=== PATIENT | male | born 1970 | race Caucasian/White ===

== ENCOUNTER 2024-01-26 18:28 | Inpatient (IN) | payer OTHER ==
[~2024-01-26] VITALS: Ht 193 cm; Wt 104.3 kg
[2024-01-26] MEDS ORDERED: NORCO (19:04)
[2024-01-26 20:39] LABS: BASOPHILS % 0.2 % (0.0-2.0); EOSINOPHILS % 2.5 % (0.0-5.0); HEMATOCRIT. 33.8 % (42.0-52.0); HEMOGLOBIN. 11.6 g/dL (14.0-18.0); LYMPHOCYTES % 9.3 % (20.0-50.0); MEAN CORPUSCULAR HEMOGLOBIN 32.7 pg (28.0-32.0); MEAN CORPUSCULAR HGB CONC 34.3 g/dL (31.0-37.0); MEAN CORPUSCULAR VOLUME 95.4 fL (80.0-94.0); MEAN PLATELET VOLUME 11.9 fl (7.4-10.4); MONOCYTES % 5.7 % (2.0-8.0); NEUTROPHILS % 82.3 % (40.0-76.0); PLATELET 158 x1000/uL (130-400); RED BLOOD CELL COUNT 3.54 mill/uL (4.7-6.1); RED CELL DISTRIBUTION WIDTH 14.1 % (11.6-14.6); WHITE BLOOD COUNT 8.1 x1000/uL (4.5-11.0)
[2024-01-26] MEDS: PIPERACILLIN/TAZO 3.375G/50ML 50 ML IV STA (20:41)
[2024-01-26] MEDS: FENTANYL CITRATE/PF 50MCG/ML 2ML VIAL IV ONE (20:41)
[2024-01-26] MEDS: SODIUM CHLORIDE 0.9% 1000ML BAG (SEPSIS BOLUS) IV ONE (20:42)
[2024-01-26 20:45] LABS: CHLORIDE 108 mEq/L (98-107); POTASSIUM 4.7 mEq/L (3.5-5.1); SODIUM 140 mEq/L (136-145)
[2024-01-26 20:46] LABS: CALCIUM 9.4 mg/dL (8.7-10.4); CARBON DIOXIDE 25 mEq/L (21-32)
[2024-01-26 20:51] LABS: CREATININE 1.1 mg/dL (0.6-1.3); GLUCOSE 116 mg/dL (70-105); UREA NITROGEN BLOOD 19 mg/dL (9-23)
[2024-01-26 20:53] LABS: TROPONIN I HIGH SENSITIVITY < 4 ng/L (3.0-53)
[2024-01-26 20:59] LABS: D-DIMER 7.92 mg/L FEU (<0.50); PARTIAL THROMBOPLASTIN TIME 29.7 sec (23.4-31.0)
[2024-01-26] MEDS: MORPHINE SULFATE 4 MG/ML INJ (FOR IV/IM USE) IV ONE (21:49)
[2024-01-26] MEDS ORDERED: ZOLPIDEM TARTRATE 5MG TABLET PO PRN (22:00)
[2024-01-26] MEDS ORDERED: LEVOFLOXACIN 500MG PREMIX 100 ML IV SCH (22:00)
[2024-01-26] MEDS ORDERED: ONDANSETRON HCL 4MG/2ML INJ IV PRN (22:00)
[2024-01-26] MEDS: ENOXAPARIN 40MG/0.4ML SYR SUBCUT SCH (22:30)
[2024-01-26] MEDS ORDERED: IOHEXOL-350 100 ML BOTTLE ONE ×2 (23:28)
[2024-01-27] MEDS: LEVOFLOXACIN 750MG PREMIX 150ML IV SCH (00:45)
[2024-01-27] MEDS: VANCOMYCIN 1,750 MG in DEXT 5% WATER 500 ML IV NR (03:30)
[2024-01-27 03:39] LABS: BASOPHILS % 0.3 % (0.0-2.0); EOSINOPHILS % 7.9 % (0.0-5.0); HEMATOCRIT. 29.6 % (42.0-52.0); LYMPHOCYTES % 18.5 % (20.0-50.0); MEAN CORPUSCULAR HEMOGLOBIN 32.7 pg (28.0-32.0); MEAN CORPUSCULAR HGB CONC 33.7 g/dL (31.0-37.0); MEAN CORPUSCULAR VOLUME 97.1 fL (80.0-94.0); MEAN PLATELET VOLUME 12.1 fl (7.4-10.4); MONOCYTES % 10.9 % (2.0-8.0); NEUTROPHILS % 62.4 % (40.0-76.0); PLATELET 105 x1000/uL (130-400); RED BLOOD CELL COUNT 3.05 mill/uL (4.7-6.1); RED CELL DISTRIBUTION WIDTH 14.6 % (11.6-14.6); WHITE BLOOD COUNT 5.3 x1000/uL (4.5-11.0)
[2024-01-27 03:43] LABS: CARBON DIOXIDE 24 mEq/L (21-32); CHLORIDE 108 mEq/L (98-107); POTASSIUM 4.2 mEq/L (3.5-5.1); SODIUM 139 mEq/L (136-145)
[2024-01-27 03:44] LABS: CALCIUM 8.8 mg/dL (8.7-10.4)
[2024-01-27 03:49] LABS: CREATINE KINASE MB FRACTION < 0.5 ng/mL (0.5-3.6); CREATININE 0.9 mg/dL (0.6-1.3)
[2024-01-27 03:50] LABS: GLUCOSE 99 mg/dL (70-105); UREA NITROGEN BLOOD 17 mg/dL (9-23)
[2024-01-27 03:51] LABS: CREATINE KINASE 52 IU/L (46-171)
[2024-01-27 03:58] LABS: TROPONIN I HIGH SENSITIVITY < 4 ng/L (3.0-53)
[2024-01-27] MEDS ORDERED: NALOXONE HCL 0.4MG/ML VIAL IV PRN (11:15)
[2024-01-27] MEDS ORDERED: OMEP20CA14 PO (11:41)
[2024-01-27] MEDS ORDERED: ALLO100T MT (11:41)
[2024-01-27] MEDS ORDERED: AMLO-498 MT (11:41)
[2024-01-27 12:00] VITALS: BP 176/89; PULSE 84; RESP 18; TEMP 36.33624; TEMP 36.3624; O2SAT 100
[2024-01-27 12:21] LABS: CREATINE KINASE MB FRACTION < 0.5 ng/mL (0.5-3.6)
[2024-01-27 12:23] LABS: CREATINE KINASE 45 IU/L (46-171)
[2024-01-27 12:34] LABS: TROPONIN I HIGH SENSITIVITY < 4 ng/L (3.0-53)
[2024-01-27] MEDS: CLONIDINE 0.1MG TABLET PO PRN (12:37)
[2024-01-27] MEDS: PANTOPRAZOLE SODIUM 40 MG/VIAL IV SCH (12:37)
[2024-01-27] MEDS: ACETAMINOPHEN 325MG TABLET PO PRN (12:43)
[2024-01-27] MEDS ORDERED: IBUP-2029 MT (12:54)
[2024-01-27] MEDS ORDERED: HYDR-4001 MT (12:54)
[2024-01-27 15:21] LABS: *AMPHETAMINES SCREEN URINE NEGATIVE (NEGATIVE); *BARBITURATES SCREEN URINE NEGATIVE (NEGATIVE); *BENZODIAZEPINES SCREEN URINE NEGATIVE (NEGATIVE); *COCAINE SCREEN URINE NEGATIVE (NEGATIVE); CANNABINOID URINE SCREEN PRESUMPTIVE POSITIVE (NEGATIVE); METHADONE URINE SCREEN NEGATIVE (NEGATIVE); OPIATES URINE SCREEN PRESUMPTIVE POSITIVE (NEGATIVE); PHENCYCLIDINE URINE SCREEN NEGATIVE (NEGATIVE)
[2024-01-27 15:22] LABS: ECSTASY MDMA SCREEN URINE NEGATIVE (NEGATIVE)
[2024-01-27 16:00] VITALS: BP 150/78; PULSE 82; RESP 18; TEMP 36.33624; O2SAT 98
[2024-01-27] MEDS: PIPERACILLIN/TAZO 3.375G/50ML 50 ML IV SCH (16:23)
[2024-01-27] MEDS ORDERED: AZITHROMYCIN 500MG/250ML IV SCH (17:00)
[2024-01-27] MEDS: DOCUSATE SODIUM 100MG CAPSULE PO SCH (17:08)
[2024-01-27] MEDS: ALLOPURINOL 100 MG TABLET PO SCH (17:08)
[2024-01-27] MEDS: HYDROCODONE/ACETAMINOPHEN 5/325MG TABLET PO PRN (17:09)
[2024-01-27] MEDS: AMLODIPINE 5MG TABLET PO SCH (17:11)
[2024-01-27] MEDS: LOSARTAN 25 MG TABLET PO SCH (17:11)
[2024-01-27] MEDS: VANCOMYCIN 1.5GM/250ML IV SCH (17:18)
[2024-01-27 20:00] VITALS: BP 126/78; PULSE 79; RESP 19; TEMP 36.72516; O2SAT 100
[2024-01-27 20:52] VITALS: PULSE 80; RESP 18; O2SAT 100
[2024-01-27] MEDS: IPRATROPIUM/ALBUTEROL 0.5-3(2.5)MG/3ML NEB HHN SCH (20:52)
[2024-01-27] MEDS: MORPHINE SULFATE 2 MG/ML INJ (NOT FOR IM USE) IV PRN (21:08)
[2024-01-28] VITALS (12 sets, daily range): BP systolic 107–126; BP diastolic 63–81; PULSE 72–98; RESP 18–20; TEMP 36.3918–37.33632; O2SAT 93–100
[2024-01-28] MEDS ORDERED: AMOX1TAB16 MT (14:07)
[2024-01-28] MEDS: VANCOMYCIN 1.5GM/250ML IV SCH (20:32)
[2024-01-29] VITALS (7 sets, daily range): BP systolic 114–144; BP diastolic 71–83; PULSE 85–92; RESP 15–20; TEMP 36.78072–37.2252; O2SAT 96–99
[2024-01-29 06:10] LABS: BASOPHILS % 0.1 % (0.0-2.0); CHLORIDE 105 mEq/L (98-107); DIFFERENTIAL COMMENT 0; EOSINOPHILS % 9.9 % (0.0-5.0); HEMOGLOBIN. 9.5 g/dL (14.0-18.0); LYMPHOCYTES % 12.4 % (20.0-50.0); MEAN CORPUSCULAR HEMOGLOBIN 32.1 pg (28.0-32.0); MEAN CORPUSCULAR VOLUME 94.6 fL (80.0-94.0); MEAN PLATELET VOLUME 11.3 fl (7.4-10.4); MONOCYTES % 8.2 % (2.0-8.0); NEUTROPHILS % 69.4 % (40.0-76.0); PLATELET 127 x1000/uL (130-400); POTASSIUM 3.9 mEq/L (3.5-5.1); RED BLOOD CELL COUNT 2.95 mill/uL (4.7-6.1); RED CELL DISTRIBUTION WIDTH 14.1 % (11.6-14.6); SODIUM 138 mEq/L (136-145)
[2024-01-29 06:11] LABS: CALCIUM 9.2 mg/dL (8.7-10.4); CARBON DIOXIDE 27 mEq/L (21-32)
[2024-01-29 06:16] LABS: CREATININE 0.8 mg/dL (0.6-1.3); GLUCOSE 95 mg/dL (70-105); UREA NITROGEN BLOOD 13 mg/dL (9-23)
[2024-01-29] MEDS: VANCOMYCIN 1.25GM/250ML 250 ML IV SCH (14:26)
[2024-01-29] MEDS ORDERED: VANCOMYCIN 1250MG in DEXTROSE 5% WATER 250ML IV SCH (15:00)
[2024-01-30] MEDS ORDERED: FAMOTIDINE 20MG TABLET PO SCH (09:00)
== END 2024-01-29 16:13 | disposition home or self-care (01) | DRG 871 ==
LOC: ER 18:28 → 5WST 21:45 → EDBEDREQ 21:57 → EDBEDREQTM 21:57 → 7WST 01-27 11:11
PROVIDERS: ADMIT Internal Medicine; ATTEND Internal Medicine
DX: A41.9 Sepsis, unspecified organism (principal); J18.9 Pneumonia, unspecified organism; J96.01 Acute respiratory failure with hypoxia; J93.9 Pneumothorax, unspecified; I11.9 Hypertensive heart disease without heart failure; Z20.822 Contact with and (suspected) exposure to COVID-19; Y95 Nosocomial condition; D64.9 Anemia, unspecified; D69.6 Thrombocytopenia, unspecified; F12.90 Cannabis use, unspecified, uncomplicated; M10.9 Gout, unspecified
CPT/HCPCS: 36415; 71045; 71275; 80048; 80202; 80305; 82550; 82553; 83605; 83880; 84145; 84484; 85025; 85379; 86850; 86900; 87426; 87804; 93005; 93970; 94640; 99291; J0456; J1650; J1956; J2270; J2470; J2543; J3010; J3370; J7030; J7060; Q9967